=== PATIENT | male | born 1990 | race Caucasian/White ===

== ENCOUNTER 2017-05-18 15:37 | Emergency (ER) | payer OTHER ==
[~2017-05-18] VITALS: Ht 188 cm; Wt 99.9 kg
[2017-05-18 15:43] VITALS: TEMP 36.7; Ht 188 cm; Wt 99.9 kg
[2017-05-18] MEDS ORDERED: LEVO5TAB2 PO (15:50)
--- NOTE | 2017-05-18 16:47 | DIAGNOSTIC IMAGING REPORT ---
CT HEAD WITHOUT CONTRAST (CT) CLINICAL HISTORY: trauma, headache, dizziness COMPARISON STUDY: No previous studies for comparison. TECHNIQUE: Axial CT of the brain is performed from the vertex to the skull base. IV contrast was not administered for this examination. CT DOSE: 729.78 mGycm FINDINGS: No intra or extra-axial mass lesions are visualized. There is no CT evidence of acute cortical infarction. There is no evidence of midline shift. There is no acute hemorrhage. No calvarial fractures are visualized. There is no evidence of pathologic ventricular dilatation. There is no evidence of acute sinusitis IMPRESSION: Normal noncontrast head CT. Electronically signed by: Teddy Magana M.D. 05/18/2017 4:45 PM Dictated Date/Time: 05/18/2017 4:44 PM
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
[2017-05-18 17:30] VITALS: BP 147/76; PULSE 86; O2SAT 97
== END 2017-05-18 17:30 | disposition home or self-care (01) ==
LOC: C.EDB 15:41 → C.EDD 17:30
DX: S06.0X0D Concussion without loss of consciousness, subsequent encounter (principal); W22.8XXA Striking against or struck by other objects, initial encounter; Z79.899 Other long term (current) drug therapy